=== PATIENT | female | born 1945 | race American Indian/Alaskan Native ===

== ENCOUNTER 2018-12-02 19:06 | Emergency (ER) | payer MEDICARE ==
[2018-12-02 19:34] VITALS: RESP 18; TEMP 98.6
[2018-12-02 21:00] LABS: BASO # 0.04 K/mm3 (0.0-2.0); BASO % 0.6 % (0.0-3.0); EOS # 0.4 (0.0-0.7); GRAN # 3.71 (1.4-6.5); GRAN % 52.5 % (50.0-68.0); HEMOGLOBIN 12.7 g/dL (12.0-16.0); LYMPH % 28.2 % (22.0-35.0); MEAN CELL VOLUME 87.9 fl (80.0-105.0); MEAN PLATELET VOLUME 9.7 fl (7.0-11.0); MONO % 13.7 % (1.0-6.0); RBC 4.38 10^6/uL (3.5-6.1); RED CELL DISTRIBUTION WIDTH 13.9 % (11.5-14.5); WHITE BLOOD COUNT 7.1 10^3/uL (4.5-11.0)
[2018-12-02 21:07] LABS: ALB/GLOB RATIO 1.2 (1.1-1.8); ALBUMIN 4.3 g/dL (3.0-4.8); ALT/SGPT 17 U/L (7-56); AST/SGOT 25 U/L (14-36); BLOOD UREA NITROGEN 11 mg/dL (7-21); GFR NON-AFRICAN AMERICAN > 60
[2018-12-02 21:08] LABS: ACETAMINOPHEN < 10.0 ug/ml (10.0-20.0); SALICYLATE < 1 mg/dL (2.0-20.0)
--- NOTE | 2018-12-02 22:08 | ED PDOC ---
Arrival/HPI - General Chief Complaint: Psychiatric Evaluation Time Seen by Provider: 12/02/18 19:09 Historian: Patient, Family - History of Present Illness Narrative History of Present Illness (Text): 12/02/18 22:03 73yo female with past medical history of Dementia and Alzheimer who was bib the daughter/son for psychiatric evaluation. Per the children patient was seen recently at [facility] for same complaint and DC home. The daughter states patient screams at home, saying she is seeing things that are nonexistent and talking to the wall. States patient have had this symptoms but it has worsened over the last few weeks. States she spoke with the psychiatrist Dr. Carvalho and was referred to emergency department . Patient however is refusing to stay in emergency department . States her children did not tell her that they are bringing her to emergency department . She denies SI/HI, hallucinations and any somatic complaint. Daughter states pt is currently on antibiotic for UTI. Past Medical History - Provider Review Nursing Documentation Reviewed: Yes - Neurological Hx Alzheimer's Disease: Yes Hx Dementia: Yes - Endocrine/Metabolic Hx Hypothyroidism: Yes - Psychiatric Hx Schizophrenia: Yes Hx Substance Use: No - Anesthesia Hx Anesthesia: No Hx Anesthesia Reactions: No Hx Malignant Hyperthermia: No Family/Social History - Physician Review Nursing Documentation Reviewed: Yes Family/Social History: Unknown Family HX Smoking Status: Never Smoked Hx Alcohol Use: No Hx Substance Use: No Allergies/Home Meds Allergies/Adverse Reactions: Allergies No Known Allergies Allergy (Verified 12/02/18 19:26) Review of Systems - Physician Review All systems were reviewed & negative as marked: Yes - Review of Systems Constitutional: Normal Eyes: Normal ENT: Normal Respiratory: Normal Cardiovascular: Normal Gastrointestinal: Normal Genitourinary Female: Normal Musculoskeletal: Normal Skin: Normal Neurological: Normal Endocrine: Normal Hemo/Lymphatic: Normal Psychiatric: Other (Psychiatric evaluation) Physical Exam Vital Signs Reviewed: Yes Vital Signs Temp Pulse Resp BP Pulse Ox 12/02/18 19:08 98.6 F 70 18 162/84 H 97 Temperature: Afebrile Blood Pressure: Normal Pulse: Regular Respiratory Rate: Normal Appearance: Positive for: Well-Appearing, Non-Toxic, Comfortable Pain Distress: None Mental Status: Positive for: Alert and Oriented X 3 - Systems Exam Head: Present: Atraumatic, Normocephalic Pupils: Present: PERRL Extroacular Muscles: Present: EOMI Conjunctiva: Present: Normal Mouth: Present: Moist Mucous Membranes Neck: Present: Normal Range of Motion Respiratory/Chest: Present: Clear to Auscultation, Good Air Exchange. No: Respiratory Distress, Accessory Muscle Use Cardiovascular: Present: Regular Rate and Rhythm, Normal S1, S2. No: Murmurs Abdomen: No: Tenderness, Distention, Peritoneal Signs Back: Present: Normal Inspection Upper Extremity: Present: Normal Inspection. No: Cyanosis, Edema Lower Extremity: Present: Normal Inspection. No: Edema Neurological: Present: GCS=15, CN II-XII Intact, Speech Normal Skin: Present: Warm, Dry, Normal Color. No: Rashes Psychiatric: Present: Alert, Oriented x 3, Normal Insight, Normal Concentration Medical Decision Making ED Course and Treatment: 12/02/18 22:09 73yo female bib the children for psychiatric evaluation. Pt denied any somatic or psychiatric complaint in emergency department . She was AAO x3 in emergency department . Labs was ordered and reviewed all wnl she was medically cleared for psychiatric evaluation She was seen in emergency department by BRENNAN Mireles who DC with Dr. Praveen brown and she DC pt home. - Lab Interpretations Lab Results: 12/02/18 19:41 12/02/18 20:45 Lab Results 12/02/18 20:45: Alcohol, Quantitative < 10 12/02/18 20:45: Salicylates < 1 L, Acetaminophen < 10.0 L 12/02/18 20:45: Sodium 140, Potassium 3.9, Chloride 107, Carbon Dioxide 26, Anion Gap 11, BUN 11, Creatinine 0.9, Est GFR ( Amer) > 60, Est GFR (Non- Af Amer) > 60, Random Glucose 96, Calcium 11.0 H, Magnesium 1.7, Total Bilirubin 1.0, AST 25, ALT 17, Alkaline Phosphatase 73, Total Protein 7.9, Albumin 4.3, Globulin 3.6, Albumin/Globulin Ratio 1.2 12/02/18 19:41: WBC 7.1, RBC 4.38, Hgb 12.7, Hct 38.5, MCV 87.9, MCH 29.0, MCHC 33.0, RDW 13.9, Plt Count 489 H, MPV 9.7, Gran % 52.5, Lymph % (Auto) 28.2, [place] % (Auto) 13.7 H, Eos % (Auto) 5.0, Baso % (Auto) 0.6, Gran # 3.71, Lymph # (Auto) 2.0, [place] # (Auto) 1.0 H, Eos # (Auto) 0.4, Baso # (Auto) 0.04 - RAD Interpretation Radiology Orders: 12/02/18 19:41 CHEST PORTABLE [RAD] Stat Disposition/Present on Arrival - Present on Arrival Any Indicators Present on Arrival: No History of DVT/PE: No History of Uncontrolled Diabetes: No Urinary Catheter: No History of Decub. Ulcer: No History Surgical Site Infection Following: None - Disposition Have Diagnosis and Disposition been Completed?: Yes Diagnosis: Dementia Disposition: HOME/ ROUTINE Disposition Time: 22:10 Patient Plan: Discharge Condition: STABLE Discharge Instructions (ExitCare): Dementia (DC) Additional Instructions: Follow up with your doctor/Psychiatrist Return to emergency department for any new or worsening symptoms Referrals: Lili Bronson MD [Primary Care Provider] - Follow up with primary
[2018-12-03 03:09] VITALS: BP 155/85; PULSE 75; O2SAT 100
--- NOTE | 2018-12-03 08:46 | RAD ---
Date of service: 12/02/2018 HISTORY: admission COMPARISON: No prior. FINDINGS: LUNGS: The lungs are well inflated and clear. PLEURA: No pleural effusions or pneumothorax. CARDIOVASCULAR: The heart is normal in size. No aortic atherosclerotic calcification present. OSSEOUS STRUCTURES: Within normal limits for the patient's age. VISUALIZED UPPER ABDOMEN: Normal. OTHER FINDINGS: None. IMPRESSION: No active pulmonary disease.
== END 2018-12-02 22:10 | disposition home or self-care (01) ==
LOC: ED 19:06 → MERGE 19:06 → ED 22:10
DX: F03.90 Unspecified dementia, unspecified severity, without behavioral disturbance, psychotic disturbance, mood disturbance, and anxiety (principal); E03.9 Hypothyroidism, unspecified
CPT/HCPCS: 71045; 80053; 83735; 85025; 90791; 99282; G0480